=== PATIENT | female | born 1970 | race Caucasian/White ===

== ENCOUNTER 2021-06-12 10:08 | Outpatient (CLI) | payer BC | END 2021-06-12 10:09 | disposition home or self-care (01) | LOC: SCSRAD 10:08 | PROVIDERS: ATTEND Physician Assistant | DX: M54.2 Cervicalgia (principal); M54.6 Pain in thoracic spine; M47.812 Spondylosis without myelopathy or radiculopathy, cervical region; M47.814 Spondylosis without myelopathy or radiculopathy, thoracic region | CPT/HCPCS: 72040; 72072 ==

== ENCOUNTER 2022-07-22 14:16 | Outpatient (CLI) | payer BC | END 2022-07-22 14:17 | disposition home or self-care (01) | LOC: SCSRAD 14:16 | PROVIDERS: ATTEND Physician Assistant | DX: M79.671 Pain in right foot (principal) ==